=== PATIENT | female | born 1975 | race African-American/Black ===

== ENCOUNTER 2016-08-09 13:29 | Inpatient (IN) | payer MEDICAID ==
[~2016-08-09] VITALS: Ht 165.1 cm; Wt 58.5 kg
[2016-08-09 14:51] VITALS: BP 135/90; BMI 21.5
[2016-08-09] MEDS ORDERED: COLACE100 MG PO (14:59)
[2016-08-09] MEDS ORDERED: FERROUS SULFAT325 MG PO (15:00)
[2016-08-09] MEDS ORDERED: ASPIRIN325 MG PO (15:01)
[2016-08-09] MEDS ORDERED: DETROL LA4 MG PO (15:01)
[2016-08-09] MEDS ORDERED: ACETAMINOPHEN325 MG PO (15:02)
[2016-08-09] MEDS ORDERED: ZOFRAN4 MG PO (15:03)
[2016-08-09] MEDS ORDERED: MAALOX ADVANCE355 ML PO (15:04)
[2016-08-09] MEDS ORDERED: MILK OF MAGNESI30 ML PO (15:05)
[2016-08-09] MEDS ORDERED: ULTRAM50 MG PO (15:06)
[2016-08-09] MEDS ORDERED: LOVENOX40 MG/0.4 SC (15:06)
[2016-08-09] MEDS ORDERED: NICODERM C1 PATCH .2 TRANSDERM (15:07)
[2016-08-09] MEDS ORDERED: NITROQUICK0.4 MG SL (15:08)
[2016-08-09 19:09] VITALS: BP 149/102
--- NOTE | 2016-08-09 19:30 | NUR ---
PT. IN BED WITH HOB UP FOR COMFORT AND IS SPEAKING WITH MARY ANN Hernandez. S.O. PRESENT AND HE IS HELPING TO ANSWER QUESTIONS. PT. HAD AN "EPISODE" EARLIER WHERE SHE COULDN'T SPEAK CLEARLY AND HER B/P WAS ELEVATED. "EPISODE" LASTED ABOUT 15 MIN. AND THEN HER SPEECH RETURNED TO WHERE IT WAS BEFORE "EDISODE". ASSESSMENT COMPLETED. SPEECH IS SOMEWHAT SLURRED AT THIS TIME, AND PT. IS ABLE TO COMMUNICATE CLEARLY THE TIME FRAME ALL OF HER MEDICAL ISSUES HAPPENED. PT. WAS APPARENTLY DIAGNOSIED WITH AN UTI BY [facility] PRIOR TO 08-07-16, AND THEN ON 08-07-[address] Neftaly SLATER STARTED HER ON DETRAL [place] DAILY. PT. HAS BEEN IN [facility] [place] IN [facility] PRIOR TO HER COMING HERE. ASSESSMENT COMPLETED. PT. HAS NO VOICED NEEDS AT THIS TIME AND HER CALL LIGHT IS WITHIN REACH. S.O. WILL BE STAYING WITH PT. TIL FRIDAY.
--- NOTE | 2016-08-09 20:10 | NUR ---
S.O. REPORTS PT. HAVING ANOTHER "EPISODE". UPON ENTERING ROOM PT'S HOB ELEVATED, S.O. WIPING SIDE OF FACE WITH WASHCLOTH. PT. IS UNABLE TO SPEAK BUT WAS ABLE TO FOLLOW COMMAND OF SQUEEZING/RELAXING LEFT HAND WITH MY FINGERS INSIDE HAND. B/P WAS 170/113 ON THE LUE. CALL PLACED TO DR. VENTURA AND ORDERS RECEIVED ON CLONIDINE 0.1MG P.O. Q 4 HOURS SBP>160 AND DBP>100. CLONIDINE WILL BE ADMIN.
--- NOTE | 2016-08-09 20:47 | NUR ---
PT'S SPEECH HAS RETURNED TO WHERE IT WAS WHEN I INITIALLY SAW PT. INFORMED PT. AND S.O. ABOUT NEW RX ORDERED BY DR. VENTURA FOR PT'S B/P AND HOW OFTER IT CAN BE ADMIN. BOTH VERBALIZED UNDERSTANDING.
--- NOTE | 2016-08-09 21:50 | NUR ---
VISITORS HAVE LEFT FOR THE EVENING, LEAVING S.O. TO STAY THE NIGHT WITH PT.
--- NOTE | 2016-08-09 22:50 | NUR ---
PT. IN BED WITH HOB ELEVATED FOR COMFORT AND VISITING WITH MULTIPLE VISITORS. PT. DEMONSTRATING TO VISITORS HOW SHE CAN RAISE UP HER RLE AND HAVE FULL MOVEMENT OF IT AND ALSO HER RUE. PT. DEMONSTRATED HOW SHE IS STILL NEEDING TO WORK ON HER RIGHT HAND FINGERS THEY DO NOT OPEN AND CLOSE GRIPPING MOVEMENT. PT'S SPEECH IS 100% ALSO AT THIS TIME.
--- NOTE | 2016-08-09 23:30 | NUR ---
S.O. CALLED ME TO ROOM AND REPORTS ANOTHER "EPISODE" HAS HAPPENED. S.O. IS WIPING FACE WITH COOL WASHCLOTH. PT IS UNABLE TO SPEAK. PT. CAN BARELY NOD HER HEAD YES AND NO WHEN ASKING PT. QUESTIONS. PT. WAS ABLE TO FOLLOW COMMAND OF SQUEEKING MY FINGERS AGAIN. B/P IS 131/85. S.O. AT BEDSIDE AND CONTINUES TO ASSIST PT. AND NOW HELPING HER DRINK SOME ICE WATER. WHEN I ASKED PT. IF HER MOUTH ALWAYS GETS DRY WITH THESE "EDISODES" SHE NODDED HER HEAD "YES." INFORMED S.O. TO CALL FOR ANY OTHER NEEDS AND HE SAID HE WOULD. CALL LIGHT REMAINS WITHIN REACH.
--- NOTE | 2016-08-10 03:03 | NUR ---
PT. IN BED WITH HOB UP FOR COMFORT WITH EYES CLOSED AND RESP. DEEP AND EVEN. S.O. ASLEEP IN RECLINER NEXT TO PT. CALL LIGHT REMAINS WITHIN REACH.
[2016-08-10 05:47] LABS: BASOPHILS 0.2 % (0-2); EOSINOPHILS 2.8 % (0-7); HEMATOCRIT 29.7 % (36.0-48.0); HEMOGLOBIN 10.3 g/dL (12-16); IMMATURE GRANULOCYTES 0.2 % (0-5); LYMPHOCYTES 35.3 % (15-50); MCH 23.1 pg (26.0-34.0); MCHC 34.7 g/dL (31.0-37.0); MCV 66.7 fL (80.0-100.0); MEAN PLATELET VOLUME 10.6 fL (7.4-10.4); MONOCYTES 6.5 % (2-11); PLATELET COUNT 245 10x3/uL (130-400); RBC 4.45 10x6/uL (4.00-5.40); RDW 14.3 % (11.5-14.5); WBC 6.2 10x3/uL (4.8-10.8)
[2016-08-10 06:00] LABS: CALC OSMOLALITY 277 mosm/kg (275-300); CALCIUM 8.8 mg/dL (8.5-10.1); CARBON DIOXIDE 23.6 mmol/L (21.0-32.0); CHLORIDE - SERUM 106 mmol/L (98-107); CREATININE - SERUM 0.8 mg/dL (0.6-1.3); GLUCOSE 93 mg/dL (74-106); POTASSIUM - SERUM 3.6 mmol/L (3.5-5.1); SODIUM 140 mmol/L (136-145); UREA NITROGEN 9 mg/dL (7-18); eGFR NON AFRICAN AMERICAN 85 mL/min (90-120)
--- NOTE | 2016-08-10 06:37 | NUR ---
PT. SITTING UP IN BED DOING HER MORNING GROOMING. NO VOICED NEEDS AND HER SPEECH IS 100% AT THIS TIME. CALL LIGHT WITHIN REACH.
--- NOTE | 2016-08-10 08:00 | NUR ---
SHIFT ASSMT COMPLETED.BREAKFAST TRAY GIVEN.CL IN REACH.FRIEND AT BEDSIDE.
[2016-08-10 09:28] VITALS: BP 95/55
--- NOTE | 2016-08-10 12:00 | NUR ---
MEAL GIVEN.DENIES NEEDS.
[2016-08-10 19:28] VITALS: BP 110/67
--- NOTE | 2016-08-10 20:00 | NUR ---
PT IN BED WITH HOB UP FOR COMFORT. WATCHING TV WITH VISITORS IN ROOM. GARBLED SPEECH. BOTTLE WASHER MACHINE NOT EQUAL OR STRONG. NO 02. NO IV. BED IN LOWEST POSITION AND CALL LIGHT WITHIN REACH.
--- NOTE | 2016-08-11 | NUR ---
PT IN BED WITH HOB UP FOR COMFORT. EYES CLOSED. CHEST RISING AND FALLING. VISITOR IN ROOM. BED IN LOWEST POSITION AND CALL LIGHT WITHIN REACH.
--- NOTE | 2016-08-11 03:35 | NUR ---
pt resting quietly resting, respirations regular and unlabored, no s/s of acute distress. significant other in room resting quietly.
--- NOTE | 2016-08-11 08:00 | NUR ---
SHIFT ASSMT COMPLETED.DENIES NEEDS.CL IN REACH.
[2016-08-11 08:18] VITALS: BP 103/64
--- NOTE | 2016-08-11 09:56 | RHP ---
PATIENT: MINNIE RAMIREZ MEDICAL RECORD: [id number] ACCOUNT: [id number] LOCATION:[facility]1115 : 79 ADMISSION DATE: 08/09/16 REHABILITATION HISTORY AND PHYSICAL EXAMINATION POST ADMISSION PHYSICIAN EXAMINATION Post-admission Physical Exam and History and Physical DATE OF ADMISSION: 08/09/2016 ADMITTING DIAGNOSIS: Right-sided weakness. HISTORY OF PRESENT ILLNESS: The patient was admitted to inpatient rehab for debility and right-sided weakness. She was recently transferred from the ER at [facility] ____ for workup of right-sided weakness, slurred speech. When her symptoms resolved and tests were negative, she was determined to have TIA. Upon discharge from the hospital, her signs and symptoms recurred along with some chest pain and she will return back to [facility] and has been in acute hospital and MRI was clear. She continues to have some right-sided weakness, slurred speech and self-care deficits. She continues to have some elevated blood pressures, currently on telemetry. She was completely independent with ADLs and mobility prior to this. She is currently set up from max assist with ADLs and moderate to max assist with mobility. She plans to return home with her fiance and get back to her prior level of functioning. COMORBIDITIES: In this patient include aphasia, hypertension, anemia, elevated LFTs, chest pain, self care deficit, right-sided weakness, slurred speech, right-sided facial droop, numbness, impaired gait, impaired fine motor skills, right hand dominant, impaired coordination, and smoker. PAST MEDICAL HISTORY: Significant for hypertension, anxiety, marijuana use and smoker. PAST SURGICAL HISTORY: Includes appendectomy and cholecystectomy. ALLERGIES: No known drug allergies. CURRENT MEDICATIONS: She is on a Nicoderm patch, on Lovenox 40 mg subQ daily. She is on Detrol 4 mg daily, aspirin 325 mg daily, clonidine as needed for elevated blood pressure, Nitrostat p.r.n., Ultram 50 mg q.6 hours p.r.n., Milk of Magnesia p.r.n. constipation, Mylanta p.r.n. gastric distress, Zofran 4 mg q.6 hours p.r.n. nausea and vomiting, Tylenol p.r.n. elevated pain or fever, ferrous sulfate 325 mg t.i.d. with meals and Colace 100 mg b.i.d. HABITS: Does have a history of tobacco use. No illicit drug use. FAMILY HISTORY: Noncontributory. SOCIAL HISTORY: The patient hopes to return back home, she is engaged. REVIEW OF SYSTEMS: GENERAL: Does complain of weakness and fatigue. HEENT: Denies cold, cough, or congestion. CARDIOVASCULAR: Denies chest pain. HISTORY AND PHYSICAL [id number] MINNIE RAMIREZ PHYSICAL EXAMINATION: VITAL SIGNS: Stable, afebrile. GENERAL: A well-developed female, in no acute distress, alert upon exam. HEENT: Normocephalic, atraumatic. Mucosa moist. NECK: Supple with no lymphadenopathy. LUNGS: Clear. HEART: Regular rate and rhythm. ABDOMEN: Benign. EXTREMITIES: No clubbing, cyanosis or edema. NEUROLOGIC: She does have some weakness on her right side. LABORATORY DATA: Her white count is 6.2, H&H of 10 and 29, and platelet count is noted to be 245. Her sodium is 140, potassium 3.6, BUN and creatinine of 9 and 0.8 and blood sugar is noted to be 85. ASSESSMENT: This is a 40-year-old female patient admitted to rehab with a working diagnosis of right-sided weakness with documented transient ischemic attacks and problems with blood pressure. The patient has potential to make improvement in at least 2 of the following multiple disciplinary therapies including to, but not limited to physical, occupational, respiratory, speech, nutritional services, prosthetics and orthotics. Given her complex condition and risk for more complications, rehabilitation services cannot be provided at a low level of care such as a [facility] facility. PLAN: 1. Admit to [facility] rehab for intensive inpatient therapy to include the following disciplines: A. Physical therapy to improve gait, all transfer skills and bed mobility to a modified independent level. B. Occupational therapy to improve activities of daily living to a modified independent level. C. Case management to assist with discharge planning and placement options. D. Nutrition to assist with nutritional needs. E. Rehabilitation nursing to assist in monitoring the patient's underlying medical conditions and to assist with any type of bowel or bladder management. 2. The patient's current medication and medical care will be continued. 3. The patient will be placed on standard fall precautions. 4. The patient's estimated length of stay is approximately 7-10 days. 5. I want to go ahead and place her on a small dose of Altace 2.5 mg daily. We will use her clonidine p.r.n. and I will follow up as needed or Friday if everything goes well this weekend. TRANSINT:[id number] Voice Confirmation ID: [id number] DOCUMENT ID: [id number] ELDA notes whether there has been none or any medical/functional change since admission: - ELDA attests patient continues to be appropriate for IRF: - HISTORY AND PHYSICAL [id number] MINNIE RAMIREZ SCOTT MD at [id number] CC: [id number] DICTATION DATE: 08/10/16 1207 SURGICAL ASSIST: 08/10/16 1310 ADM IN [place] [id number] [place] [address]
--- NOTE | 2016-08-11 12:00 | NUR ---
EATING LUNCH.FRIEND AT BEDSIDE.
[2016-08-11 20:00] VITALS: BP 119/85
--- NOTE | 2016-08-11 20:00 | NUR ---
PT IN BED WITH HOB UP FOR COMFORT. WATCHING TV WITH VISITORS IN ROOM. GARBLED SPEECH. NO 02. NO IV. BED IN LOWEST POSITION AND CALL LIGHT WITHIN REACH.
--- NOTE | 2016-08-12 | NUR ---
PT IN BED WITH HOB UP FOR COMFORT. EYES CLOSED. CHEST RISING AND FALLING. SIGNIFICANT OTHER IN ROOM. BED IN LOWEST POSTION AND CALL LIGHT WITHIN REACH.
--- NOTE | 2016-08-12 04:00 | NUR ---
PT IN BED WITH HOB UP FOR COMFORT. EYES CLOSED. RESPIRATIONS EVEN AND UNLABORED. BED IN LOWEST POSITION AND CALL LIGHT WITHIN REACH.
[2016-08-12 07:01] LABS: BASOPHILS 0.1 % (0-2); EOSINOPHILS 2.5 % (0-7); HEMATOCRIT 32.5 % (36.0-48.0); HEMOGLOBIN 11.1 g/dL (12-16); IMMATURE GRANULOCYTES 0.3 % (0-5); MCHC 34.2 g/dL (31.0-37.0); MCV 67.3 fL (80.0-100.0); MEAN PLATELET VOLUME 10.6 fL (7.4-10.4); NEUTROPHILS 58.1 % (40-80); PLATELET COUNT 257 10x3/uL (130-400); RBC 4.83 10x6/uL (4.00-5.40); RDW 14.2 % (11.5-14.5); WBC 6.9 10x3/uL (4.8-10.8)
[2016-08-12 07:20] LABS: CALC OSMOLALITY 273 mosm/kg (275-300); CARBON DIOXIDE 25.4 mmol/L (21.0-32.0); CHLORIDE - SERUM 106 mmol/L (98-107); CREATININE - SERUM 0.8 mg/dL (0.6-1.3); GLUCOSE 85 mg/dL (74-106); POTASSIUM - SERUM 3.8 mmol/L (3.5-5.1); SODIUM 138 mmol/L (136-145); UREA NITROGEN 11 mg/dL (7-18); eGFR NON AFRICAN AMERICAN 85 mL/min (90-120)
--- NOTE | 2016-08-12 07:48 | NUR ---
PT UP EATING BREAKFAST, DENIES NEEDS.
[2016-08-12 07:50] VITALS: BP 113/71
--- NOTE | 2016-08-12 09:20 | NUR ---
PER IMAGING CHANGED ULTRASOUND OF RT BREAST TO BILAT MAMMO DUE TO AGE OF PT.
--- NOTE | 2016-08-12 10:42 | NUR ---
PATIENT IN REHAB ROOM. WORKING WITH PHYSICAL THERAPIST. DENIES ANY PAIN/DISC AT THIS TIME.
--- NOTE | 2016-08-12 11:00 | NUR ---
NEW ORDERS FOR US OF RIGHT BREAST. MAMMOGRAM FROM 05/29/16 FAXED TO [facility],
--- NOTE | 2016-08-12 11:34 | NUR ---
PT HAD MAMMOGRAM ON 05/29/16. PER IMAGING CANCELLED MAMMO AND RE-ORDERED US.
--- NOTE | 2016-08-12 15:29 | NUR ---
PATIENT ALERT/ORIENT X4. TAKING SELF TO BATHROOM PER WHEELCHAIR. ULTRA SOUND OF RIGHT BREAST DONE. REPORT BACK
--- NOTE | 2016-08-12 17:53 | NUR ---
PATIENT SITTING UP IN BED TO EAT SUPPER. CALL LIGHT WITHIN REACH. VOICES NO NEEDS AT THIS TIME.
[2016-08-12 22:20] VITALS: BP 116/76
--- NOTE | 2016-08-12 22:45 | NUR ---
PT RECEIVED IN BED WITH EYES OPEN WATCHING TV. COMPLAINS OF DISCOMFORT TO RIGHT LOWER BACK AND HIP /. ASKED FOR PRN PAIN MEDICATIONS WITH HS MEDICATIONS. NO OTHER NEEDS OR CONCERNS MADE KNOWN. CALL LIGHT IN REACH.
--- NOTE | 2016-08-13 00:35 | NUR ---
PT IN BED WITH EYES CLOSED AND CHEST RISING. NO CONCERNS NOTED AT THIS TIME. CALL LIGHT IN REACH. WILL CONTINUE TO OBSERVE.
--- NOTE | 2016-08-13 02:27 | NUR ---
PT IN BED WITH EYES CLOSED AND CHEST RISING. NO CONCERNS NOTED AT THIS TIME. CALL LIGHT IN REACH.
--- NOTE | 2016-08-13 06:45 | NUR ---
PT IN BED WITH EYES OPEN. COMPLAINS OF ABDOMINAL PAIN DISCRIBED LIKE GAS PAIN. PRN [place] GIVEN PER MAY. NO OTHER CONCERNS NOTED. CALL LIGHT IN REACH.
--- NOTE | 2016-08-13 07:19 | NUR ---
INTRODUCED SELF TO PT, PT STATES NO NEW NEEDS AT THIS TIME, WILL CONTINUE TO MONITOR, CALL LIGHT WITHIN REACH.
--- NOTE | 2016-08-13 08:08 | NUR ---
PT EATING BREAKFAST, DENIES NEEDS. CL IN REACH.
[2016-08-13 08:49] VITALS: BP 112/73
--- NOTE | 2016-08-13 09:45 | NUR ---
MORNING MEDICATION GIVEN, PT TOLERATED WELL, PT STATES WENT TO RESTROOM VIA WHEELCHAIR, WILL CONTINUE TO MONITOR, CALL LIGHT WITHIN REACH.
--- NOTE | 2016-08-13 12:03 | NUR ---
PT SIGNED BED WAIVER, PT WAS INFORMED THAT HER CONDITION INCREASES THE RISK OF INJURY WITHOUT THE USE OF BED/CHAIR ALARM. WILL CONTINUE TO MONITOR, CALL LIGHT WITHIN REACH.
--- NOTE | 2016-08-13 13:57 | NUR ---
PT RESTING IN BED, RESPIRATIONS EVEN, WILL CONTINUE TO MONITOR, CALL LIGHT WITHIN REACH.
[2016-08-13 15:08] VITALS: Ht 165.1 cm; Wt 58.5 kg
[2016-08-13 18:54] VITALS: BP 117/81
--- NOTE | 2016-08-13 19:40 | NUR ---
PT RECEIVED IN BED WITH EYES OPEN WATCHING TV. NO CONCERNS MADE KNOWN. CALL LIGHT IN REACH.
--- NOTE | 2016-08-13 22:50 | NUR ---
PT IN BED WITH EYES CLOSED AND CHEST RISING. NO CONCERN NOTED AT THIS TIME. CALL LIGHT IN REACH.
--- NOTE | 2016-08-14 02:51 | NUR ---
PT IN BED WITH EYES CLOSED AND CHEST RISING. NO SIGN/SYMPTOMS OF DISTRESS NOTED. CALL LIGHT IN REACH.
[2016-08-14 07:56] VITALS: BP 123/80
--- NOTE | 2016-08-14 08:15 | NUR ---
PT RESTING IN BED WITH EYES OPEN CALL LIGHT IN REACH PT EATING BREAKFAST TOLERATING WELL WILL MONITER
--- NOTE | 2016-08-14 10:00 | NUR ---
IN THERAPY.BENITO WELL.
--- NOTE | 2016-08-14 11:06 | NUR ---
PATIENT LAMAR DISCHARGE DATE 08/21/16. SHE WILL BE DISCHARGING BACK HOME WITH HER FAMILY. WILL CONTINUE TO FOLLOW WITH PATIENT AND WILL ASSIST WITH DISCHARGE NEEDS.
--- NOTE | 2016-08-14 16:50 | NUR ---
PT RESTING IN BED WITH EYES OPEN CALL LIGHT IN REACH NO PROBLEMS WILL MONITER
--- NOTE | 2016-08-14 19:40 | NUR ---
PT. SITTING UP IN W/C VISITING WITH MULTIPLE FAMILY MEMBERS. ASSESSMENT COMPLETED. SPEECH IS 100%, INTERNAL MEDICINE NURSE EQUAL AND STRONG AND PT. IS ABLE TO FREELY AMBULATE AROUND IN HER ROOM, BUT FOR SAFETY REASONS IS USING THE W/C. NO VOICED NEEDS AT THIS TIME AND HER CALL LIGHT IS WITHIN REACH.
[2016-08-14 21:46] VITALS: BP 130/84
--- NOTE | 2016-08-14 23:12 | NUR ---
PT. IN BED LYING ON HER RIGHT SIDE WITH EYES CLOSED AND RESP. DEEP AND EVEN. CALL LIGHT WITHIN REACH.
--- NOTE | 2016-08-15 03:11 | NUR ---
PT. IN BED WITH HOB SLIGHTLY ELEVATED FOR COMFORT AND LYING ON HER RIGHT SIDE. EYES ARE CLOSED WITH EVEN RESP. CALL LIGHT WITHIN REACH.
[2016-08-15 07:35] VITALS: BP 89/54
--- NOTE | 2016-08-15 08:00 | NUR ---
SHIFT ASSMT COMPLETED.CONTINUES TO SLEEP A LITTLE LATE THIS AM.NOTED BP RUNNING A LITTLE LOW.WILL HOLD BP MED THIS AM.BREAKFAST TRAY LEFT.
--- NOTE | 2016-08-15 12:00 | NUR ---
SITTING UP IN CHAIR.DENIES NEEDS.NO C/O VOICED.
[2016-08-15 13:05] VITALS: BP 103/73
--- NOTE | 2016-08-15 16:00 | NUR ---
sitting up in chair.
[2016-08-15 19:30] VITALS: BP 117/79
--- NOTE | 2016-08-15 20:00 | NUR ---
PT IN BED WITH HOB UP FOR COMOFRT. TV ON. TALKING ON PHONE. ALERT & OREINTED. D/C TOMORROW (08/16/16). BED ALARM WAIVER. NO O2. NO IV. BED IN LOWEST POSITION AND CALL LIGHT WITHIN REACH.
--- NOTE | 2016-08-15 23:15 | NUR ---
RESTING QUIETLY IN BED, EYES CLOSED.
--- NOTE | 2016-08-16 | NUR ---
PT IN BED WITH HOB UP FOR COMFORT. EYES CLOSED. CHEST RISING AND FALLING. BED IN LOWEST POSITION AND CALL LIGHT WITHIN REACH.
--- NOTE | 2016-08-16 04:00 | NUR ---
PT IN BED WITH HOB UP FOR COMFORT. EYES CLOSED. RESPIRATIONS EVEN AND UNLABORED. BED IN LOWEST POSITION AND CALL LIGHT WIHTIN REACH.
--- NOTE | 2016-08-16 08:00 | NUR ---
SHIFT ASSMT COMPLETED,PLAN FOR DISCHARGE HOME TODAY.
[2016-08-16] MEDS ORDERED: ALTACE1.25 MG PO (08:31)
[2016-08-16 08:37] VITALS: BP 101/75
--- NOTE | 2016-08-16 10:42 | NUR ---
PATIENT DISCHARGING HOME WITH FAMILY TODAY. PATIENT DECLINES HOME HEALTH AND ANY DME NEEDS. DR. CABRERA OFFICE TO CALL PATIENT FOR AN APPOINTMENT.INSTRUCTED PATIENT TO CALL OFFICE IF NO RETURN CALL BY 08/19/16. CASPER REYES RN, [facility] WILL ASSIT PATIENT WITH A PCP.
--- NOTE | 2016-08-16 11:50 | NUR ---
REVIEWED [facility] INSTRUCTIONS,CALLED MEDS INTO [facility] IN [place].
== END 2016-08-16 12:05 | disposition home or self-care (01) | DRG 57 ==
LOC: D.REHAB 13:29
PROVIDERS: ADMIT Emergency Medicine
DX: I69.851 Hemiplegia and hemiparesis following other cerebrovascular disease affecting right dominant side (principal); R47.01 Aphasia; I10 Essential (primary) hypertension; D64.9 Anemia, unspecified; R79.89 Other specified abnormal findings of blood chemistry; R07.9 Chest pain, unspecified; R29.810 Facial weakness; R20.0 Anesthesia of skin; R26.9 Unspecified abnormalities of gait and mobility; F17.200 Nicotine dependence, unspecified, uncomplicated; R27.8 Other lack of coordination